=== PATIENT | male | born 1975 | race African-American/Black ===

== ENCOUNTER 2022-04-27 19:53 | Emergency (ER) | payer OTHER, MEDICAID, SELFPAY ==
--- NOTE | ~2022-04-27 | CT_ITS ---
EXAMINATION: CT abdomen pelvis wo con DATE: 04/27/2022 22:12 INDICATION: Right flank pain. Hematuria. TECHNIQUE: Computed tomography (CT) of the abdomen and pelvis was performed without intravenous contr ast. Automated exposure control and iterative reconstruction technique were employed. The dose-length product was 1645.75 mGy-cm. COMPARISON: None. FINDINGS: The visualized portions of the lung bases are clear without pneumonia or pleural effusion. The heart size is normal. No pericardial effusion. The liver, gallbladder, spleen, pancreas, adrenal glands, and kidneys are normal. There is no urolithiasis. The prostate is moderately enlarged. There are no dilated loops of bowel. The appendix is normal. There are no pathologically enlarged lymph nod es. There is no free intraperitoneal fluid. There are chronic bilateral L5 pars defects. There is mod erate lower lumbar spondylosis. IMPRESSION: 1. No urolithiasis. Reviewed, dictated and finalized at location A. IMPRESSION: 1. No urolithiasis.
[2022-04-27 20:06] VITALS: BP 202/128; PULSE 99; RESP 20; TEMP 36.7; O2SAT 100
--- NOTE | 2022-04-27 20:21 | PC.NURSE ---
Dr Pagan aware of elevated BP, no new orders at this time
[2022-04-27 20:24] LABS: Appearance Urine Clear (Clear); Bilirubin Urine Negative (Negative); Blood Urine 3+ (Negative); Color Urine Yellow (Yellow); Glucose Urine UA Negative (Negative); Ketones Urine Trace mg/dL (Negative); Leukocyte Esterase Ur 2+ LEU/UL (Negative); Nitrate Urine Negative (Negative); Protein Urine 2+ mg/dL (Negative); Specific Grav Ur >= 1.030 (1.001-1.035); pH Urine 5.5 (5.0-9.0)
[2022-04-27 20:32] LABS: Bacteria Urine Trace /hpf; Mucus Urine Rare /lpf; RBC Urine >75 /hpf (0-2); Squamous Epithelial Cell Urine Occasional /hpf (Few); WBC Urine >75 /hpf
[2022-04-27 20:33] LABS: Add Urine Microscopic? YES
--- NOTE | 2022-04-27 21:40 | ED.GENADULT ---
HPI - General Adult General Chief complaint: Urogenital-Male Stated complaint: blood in urine Time Seen by Provider: 04/27/22 21:31 History of Present Illness HPI narrative: Patient is a 46-year-old male here for evaluation of dysuria, hematuria, urgency and burning today. He denies any history of UTI. He is sexually active with one female partner for past decade; denies known exposure to STIs. He has some mild bilateral low back pain, R>L, but this is mild and patient states it feels similar to a musculoskeletal strain. No fevers, chills, nausea, vomiting. He has a history of high blood pressure and states that he has been out of his medicines for the past 3 days, he takes lisinopril, metoprolol and Norvasc. Related Data Allergies Allergy/AdvReac Type Severity Reaction Status Date / Time No Known Allergies Allergy Verified 04/27/22 20:10 Review of Systems Review of Systems: Gen: Denies fevers or chills Eyes: Denies eye pain or visual change ENT: Denies congestion Respiratory: Denies shortness of breath or cough CV: Denies chest pain or palpitations GI: Denies abdominal pain nausea, emesis or diarrhea : reports hematuria, burning. Musculoskeletal: Reports back pain. Neuro: Denies numbness, tingling, weakness or focal weakness Skin: Denies rash Except as documented, all other systems reviewed and negative Exam Narrative: APPEARANCE: Well appearing, no pain in distress, well-nourished. Head: Normocephalic and atraumatic. EYES: PERRLA/EOMI, conjunctivae clear NOSE: No nasal drainage EARS: External ear normal in appearance THROAT: Oropharynx is clear. Mucous membranes are moist. NECK: Supple. No adenopathy, no masses. RESPIRATORY: Airway patent, respirations nonlabored. Clear to auscultation bilaterally, no rales, rhonchi, wheezing. CARDIOVASCULAR: Regular rate and rhythm without murmurs, rubs, or gallops. ABDOMINAL: Normoactive bowel sounds. Soft, nontender, nondistended. No rebound tenderness or guarding. MUSCULOSKELETAL: no cva tenderness. Extremities are warm and well-perfused. Moves all extremities well. No edema. NEURO: Normal speech. No focal neurologic deficits. SKIN: Skin is warm and dry. No rashes. PSYCHIATRIC: Normal affect/mood. Course Vital Signs Vital signs: Vital Signs Temperature 98.0 F 04/27/22 20:06 Pulse Rate 99 04/27/22 20:06 Respiratory Rate 20 04/27/22 20:06 Blood Pressure 202/128 H 04/27/22 20:06 Pulse Oximetry 100 04/27/22 20:06 Oxygen Delivery Room Air 04/27/22 20:06 Temperature 98.3 F 04/27/22 23:42 Pulse Rate 82 04/27/22 23:42 Respiratory Rate 18 04/27/22 23:42 Blood Pressure 192/102 H 04/27/22 23:42 Pulse Oximetry 98 04/27/22 23:42 Oxygen Delivery Room Air 04/27/22 20:06 Medical Decision Making MDM Narrative Medical decision making narrative: 46-year-old male here for evaluation of urinary symptoms over the past day with evidence of UTI on UA with leukocytes, red blood cells and white blood cells. Postvoid residual is normal; patient not having sensation of retention. He is hypertensive but his vital signs are otherwise normal. Given presence of back pain, CT abdomen pelvis was obtained, which had no evidence of kidney stone or pyelo. Sent screening for GC and trichomoniasis, will treat prophylactically with ceftriaxone in the ED and send patient home with Cipro for UTI. Additionally, patient is requesting that his blood pressure medicine is refilled, which I feel is very reasonable given his elevated reads today. Will send prescriptions to pharmacy. He was given reasons to return to the ED and he voiced understanding. Vital Signs Vital Signs: Vital Signs Temperature 98.0 F 04/27/22 20:06 Pulse Rate 99 04/27/22 20:06 Respiratory Rate 20 04/27/22 20:06 Blood Pressure 202/128 H 04/27/22 20:06 Pulse Oximetry 100 04/27/22 20:06 Oxygen Delivery Room Air 04/27/22 20:06 Temperature 98.3 F 04/27/22 23:42 Pulse Ra
--- NOTE | 2022-04-27 21:45 | PC.NURSE ---
voided 100ml post residual scan 31mls noted
[2022-04-27 22:37] LABS: Basophils Percent Auto 0.3 % (0.2-1.2); Eosinophils Percent Auto 0.2 % (0-4.4); Hematocrit 42.2 % (42.0-52.0); Hemoglobin 13.3 g/dL (14.0-18.0); Immature Granulocyte Absolute 0.06 K/mm3 (0.00-0.031); Immature Granulocyte Percent A 0.7 % (0-0.5); Lymphocytes Absolute Auto 1.87 K/mm3 (0.9-3.2); Lymphocytes Percent Auto 21.5 % (18.3-44.2); Mean Corpuscular HGB Conc 31.5 g/dl (32-36); Mean Corpuscular Hemoglobin 27.4 pg (26-34); Mean Platelet Volume 9.7 fl (7.4-10.4); Monocytes Absolute Auto 0.8 K/mm3 (0.1-0.6); Monocytes Percent Auto 9.3 % (2.6-8.5); Neutrophils Absolute Auto 5.9 K/mm3 (1.3-6.7); Platelet Count Result 190 k/mm3 (150-375); Red Blood Count 4.85 M/mm3 (4.6-6.20); Red Cell Distribution Width 13.5 % (11.5-14.5); White Blood Count 8.7 K/mm3 (4.5-10.0)
[2022-04-27 22:51] LABS: Alanine Aminotransferase 26 U/L (6-50); Albumin Level 4.2 g/dL (3.5-5.1); Alkaline Phosphatase 102 U/L (38-126); Anion Gap 8 mmol/L (8-16); Aspartate Amino Transferase 27 U/L (17-59); Bilirubin,Total 0.4 mg/dL (0.2-1.3); Blood Urea Nitrogen 19 mg/dL (9-20); Calcium 8.7 mg/dL (8.4-10.2); Carbon Dioxide 29 mmol/L (22-30); Chloride 104 mmol/L (98-107); Estimated CRCL calculation 150 ml/min; Estimated Glomerular Filt Rate > 60; Glucose 92 mg/dL (65-110); INR 1.1; Potassium 3.7 mmol/L (3.4-5.0); Prothrombin Time 13.4 Seconds (11.1-14.7); Sodium 141 mmol/L (137-145)
[2022-04-27 22:54] VITALS: BP 109/107; PULSE 79; RESP 20; TEMP 36.8; O2SAT 100
[2022-04-27 23:11] VITALS: PULSE 88
[2022-04-27] MEDS: carvediloL 25 MG TABLET PO (23:11)
[2022-04-27] MEDS: amLODIPine BESYLATE 5 MG TABLET PO (23:11)
[2022-04-27] MEDS: lisinopriL 20 MG TABLET 40 MG PO (23:12)
[2022-04-27] MEDS: cefTRIAXone 1 GM VIAL IM (23:18)
[2022-04-27] MEDS: LIDOCAINE HCL 1% LOCAL INJ 20 ML VIAL (23:19)
[2022-04-27 23:42] VITALS: BP 192/102; PULSE 82; RESP 18; TEMP 36.8; O2SAT 98
== END 2022-04-27 23:44 | disposition home or self-care (01) ==
PROVIDERS: Emergency Medicine; Physician Assistant; Emergency Provider Emergency Medicine; PCP Internal Medicine
DX: N39.0 Urinary tract infection, site not specified (principal); I10 Essential (primary) hypertension
CPT/HCPCS: 36415; 74176; 80053; 81001; 85025; 85610; 87077; 87086; 87186; 87491; 87591; 87661; 96372; 99284; A9270; J0696

== ENCOUNTER 2022-07-24 16:25 | Emergency (ER) | payer OTHER, MEDICAID, SELFPAY ==
[2022-07-24 16:39] VITALS: BP 182/112; PULSE 86; RESP 20; TEMP 36.1; O2SAT 100
--- NOTE | 2022-07-24 16:55 | ED.LOWEXIN ---
HPI - Extremity Injury (Lower) General Chief Complaint: Extremity Injury, Lower Stated Complaint: swollen knee and pain Time Seen by Provider: 07/24/22 16:45 Source: patient Mode of arrival: ambulatory Limitations: no limitations History of Present Illness HPI Narrative: Patient presents today complaining of a 2 week history of left knee pain that started after a cortisone injection for osteoarthritis at his orthopedic doctor's office. He currently rates his pain 5/10 at rest, which increases to 10/10 with any weight-bearing. He has also been applying a topical cream without relief. Pain increases with movement and weight-bearing. Denies fever. States his orthopedist office can get him in in 2 days, but wanted him to come in for evaluation to make sure his knee was not septic. Denies fever. Related Data Home Medications Medication Instructions Recorded Confirmed atorvastatin 20 mg tablet 20 mg DAILY 07/24/22 07/24/22 furosemide 40 mg tablet 40 mg DAILY 07/24/22 07/24/22 hydrochlorothiazide 25 mg tablet 25 mg DAILY 07/24/22 07/24/22 ibuprofen 800 mg tablet 800 mg TID 07/24/22 07/24/22 Allergies Allergy/AdvReac Type Severity Reaction Status Date / Time No Known Allergies Allergy Verified 07/24/22 16:44 Review of Systems Review of Systems: CONSTITUTIONAL: Denies body aches, fever, chills, or sweats. EYES: Denies visual changes, redness, or discharge. ENT: Denies rhinorrhea, congestion, sore throat, or otalgia. CARDIOVASCULAR: Denies chest pain, palpitations, or edema. RESPIRATORY: Denies cough or dyspnea. GASTROINTESTINAL: Denies abdominal pain, nausea, vomiting, or diarrhea. GENITOURINARY: Denies dysuria or hematuria. SKIN: Denies rash, itching, or wounds. MUSCULOSKELETAL: Denies back pain, or myalgia.+ left knee pain NEUROLOGIC: Denies headache, numbness, tingling, or weakness. PSYCH: Denies depression or anxiety. [facility] Past Medical History Medical History (Updated 07/24/22 @ 17:00 by Yanet Patel, [employer], ) Hypertension Comments At time of signature, I have reviewed and agree with nursing past medical, surgical, social and family history unless otherwise noted. Please see nursing chart for further information. There is no relevant family history pertinent to the presenting complaint Exam Narrative: GENERAL: Well-appearing, well-nourished, and in no acute distress. HEAD: Normocephalic, atraumatic. EYES: EOMI. No redness or drainage. Conjunctivae normal. ENT: Mucous membranes pink and moist. NECK: Normal AROM. CHEST: No respiratory distress. EXTREMITIES: Left knee: Mild edema about the knee. Tenderness to the medial joint line. No redness or noted about the knee. Patient has full range of motion with increased pain. Distal sensation intact. Capillary refill normal. SKIN: Warm, dry, no rash. Capillary refill normal. Normal skin turgor. NEURO: No focal deficits. Alert and oriented x3. Gait steady. PSYCH: Normal affect. No signs of depression or anxiety. Course Course Level of Care: Express Care Visit Vital Signs Vital signs: Vital Signs Temperature 96.9 F L 07/24/22 16:39 Pulse Rate 86 07/24/22 16:39 Respiratory Rate 20 07/24/22 16:39 Blood Pressure 182/112 H 07/24/22 16:39 Pulse Oximetry 100 07/24/22 16:39 Oxygen Delivery Room Air 07/24/22 16:39 Temperature 96.9 F L 07/24/22 16:39 Pulse Rate 86 07/24/22 16:39 Respiratory Rate 20 07/24/22 16:39 Blood Pressure 182/112 H 07/24/22 16:39 Pulse Oximetry 100 07/24/22 16:39 Oxygen Delivery Room Air 07/24/22 16:39 Reviewed. Pt has been instructed to follow up with his PCP regarding his elevated blood pressure today. Patient is on 4 different blood pressure medications and states he does take them as prescribed. He has no symptoms of hypertensive urgency/emergency at this time. MDM - Extremity Injury (Lower) Differential Diagnosis Differential diagnosis: Likely other ( knee pain, osteoarthrit
== END 2022-07-24 17:06 | disposition home or self-care (01) ==
PROVIDERS: Emergency Provider Nurse Practitioner; PCP Internal Medicine
DX: M25.562 Pain in left knee (principal); I10 Essential (primary) hypertension
CPT/HCPCS: 99212; G0463

== ENCOUNTER 2023-05-03 11:39 | Emergency (ER) | payer OTHER, MEDICAID, SELFPAY ==
[2023-05-03] VITALS (7 sets, daily range): BP systolic 156–198; BP diastolic 100–129; PULSE 65–72; RESP 18–21; TEMP 37.1; O2SAT 97–100
--- NOTE | ~2023-05-03 | XR_ITS ---
XR chest 1V portable INDICATION: Chest pain and shortness of breath TECHNIQUE: 2 view chest. FINDINGS: No prior studies for comparison. There is left perihilar interstitial prominence and peribronchial cuffing. There is no focal consoli dation, pleural effusion, or pneumothorax. The cardiomediastinal silhouette is normal. IMPRESSION: 1. Findings most consistent with bronchiolitis versus an atypical or viral pneumonia. Reviewed, dictated and finalized at location B. IMPRESSION: 1. Findings most consistent with bronchiolitis versus an atypical or viral [facility].
--- NOTE | 2023-05-03 11:46 | ECG_ITS ---
Measurements Intervals [place] Rate: 75 P: 36 VT: 153 QRS: -5 QRSD: 98 T: 15 QT: 382 QTc: 428 Interpretive Statements SINUS RHYTHM WITH OCCASIONAL SUPRAVENTRICULAR PREMATURE COMPLEXES OTHERWISE WITHIN NORMAL LIMITS NO PREVIOUS ECG AVAILABLE FOR COMPARISON Electronically Signed On 05-03-2023 14:49:17 CDT by Oneal Solis M.D.
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
[2023-05-03] MEDS: ONDANSETRON HCL ODT 4 MG TABLET PO (15:01)
[2023-05-03] MEDS: HYDROmorphone HCL INJ (*CRX) 1 MG/ML SYR IM (15:01)
[2023-05-03 15:13] LABS: Basophils Percent Auto 0.5 % (0.2-1.2); Eosinophils Absolute Auto 0.1 K/mm3 (0-0.3); Eosinophils Percent Auto 1.5 % (0-4.4); Hematocrit 41.8 % (42.0-52.0); Hemoglobin 12.9 g/dL (14.0-18.0); Immature Granulocyte Percent A 1.5 % (0-0.5); Lymphocytes Absolute Auto 1.58 K/mm3 (0.9-3.2); Mean Corpuscular HGB Conc 30.9 g/dl (32-36); Mean Corpuscular Hemoglobin 27.4 pg (26-34); Mean Corpuscular Volume 88.7 fl (80-100); Monocytes Absolute Auto 0.6 K/mm3 (0.1-0.6); Monocytes Percent Auto 8.4 % (2.6-8.5); Neutrophils Absolute Auto 4.2 K/mm3 (1.3-6.7); Neutrophils Percent Auto 64.1 % (45.5-73.1); Platelet Count Result 260 k/mm3 (150-375); Red Blood Count 4.71 M/mm3 (4.6-6.20); Red Cell Distribution Width 13.4 % (11.5-14.5); White Blood Count 6.6 K/mm3 (4.5-10.0)
[2023-05-03 15:22] LABS: Alanine Aminotransferase 35 U/L (6-50); Albumin Level 4.4 g/dL (3.5-5.1); Alkaline Phosphatase 145 U/L (38-126); Anion Gap 7 mmol/L (8-16); Aspartate Amino Transferase 22 U/L (17-59); Bilirubin,Total 0.6 mg/dL (0.2-1.3); Blood Urea Nitrogen 16 mg/dL (9-20); Calcium 9.4 mg/dL (8.4-10.2); Carbon Dioxide 27 mmol/L (22-30); Chloride 105 mmol/L (98-107); Estimated CRCL calculation 252 ml/min; Estimated Glomerular Filt Rate > 60; Glucose 94 mg/dL (65-110); Potassium 4.1 mmol/L (3.4-5.0); Sodium 139 mmol/L (137-145)
[2023-05-03 15:34] LABS: Troponin I < 0.012 ng/mL (0.000-0.034)
[2023-05-03] MEDS: LABETALOL HCL INJ 100 MG/20 ML VIAL 20 MG IV PUSH ×2 (16:28→17:02)
[2023-05-03] MEDS: LORazepam INJ (*CRX) 2 MG/ML VIAL 1 MG IV PUSH (16:28)
--- NOTE | 2023-05-03 16:56 | PC.NURSE ---
Upon taking discharge vitals this RN noted pts BP 190s/130s. BP repeated mx times in mx extremities. Dr. Aguirre notified.
== END 2023-05-03 18:49 | disposition home or self-care (01) ==
PROVIDERS: Emergency Provider Emergency Medicine; PCP Internal Medicine; Visit Provider Internal Medicine
DX: S22.49XD Multiple fractures of ribs, unspecified side, subsequent encounter for fracture with routine healing (principal); I10 Essential (primary) hypertension; Z23 Encounter for immunization; V49.9XXD Car occupant (driver) (passenger) injured in unspecified traffic accident, subsequent encounter
CPT/HCPCS: 36415; 71045; 80053; 84484; 85025; 90471; 93005; 96374; 96375; 96376; 99284; A9270; J1170; J2060

== ENCOUNTER 2023-10-07 16:09 | Emergency (ER) | payer OTHER, SELFPAY ==
--- NOTE | 2023-10-07 16:18 | ED.EAR ---
HPI - Ear Problem General Chief complaint: Ear Stated complaint: lt ear pain Time Seen by Provider: 10/07/23 16:55 Source: patient and RN notes reviewed Mode of arrival: ambulatory Limitations: no limitations History of Present Illness HPI Narrative: 48-year-old male presents concern for left ear pain for 1 week. Reports symptoms started after using ear buds. He denies drainage from the ear. He denies upper respiratory symptoms. He denies fever. MD Complaint: ear pain Related Data Home Medications Medication Instructions Recorded Confirmed atorvastatin 20 mg tablet 20 mg DAILY 07/24/22 07/24/22 furosemide 40 mg tablet 40 mg DAILY 07/24/22 07/24/22 hydrochlorothiazide 25 mg tablet 25 mg DAILY 07/24/22 07/24/22 ibuprofen 800 mg tablet 800 mg TID 07/24/22 07/24/22 bupropion HCl 300 mg 24 hr tablet, mg PO 10/07/23 10/07/23 extended release losartan 100 mg tablet mg 10/07/23 metoprolol succinate 100 mg mg PO 10/07/23 tablet,extended release 24 hr Allergies Allergy/AdvReac Type Severity Reaction Status Date / Time No Known Allergies Allergy Verified 10/07/23 16:39 Review of Systems Review of Systems: CONSTITUTIONAL: Denies malaise, chills, sweats, or fever. EYES: Denies visual changes, redness, or discharge. ENT: Denies rhinorrhea, congestion, sinus pain, and sore throat. Reports left ear pain CARDIOVASCULAR: Denies chest pain, palpitations, or edema. RESPIRATORY: Denies cough. Denies dyspnea. GASTROINTESTINAL: Denies abdominal pain, nausea, vomiting, diarrhea SKIN: Denies rash or itching. MUSCULOSKELETAL: Denies myalgia. NEUROLOGIC: Denies headache. All systems reviewed & are unremarkable except as noted in HPI and below PMFSH Past Medical History Medical History Hypertension Comments At time of signature, agree with nursing past medical, surgical, social and family history. There is no relevant family history pertinent to the presenting complaint Exam Narrative: GENERAL: Well-appearing, well-nourished, and in no acute distress. HEAD: Normocephalic EYES: PERRLA, conjunctivae clear ENT: Nares clear, turbinates edematous, clear discharge. Mucous membranes moist. TM pearly wells with sharp light reflex bilaterally; left tragal tenderness with EAC erythema, edema. Oropharynx not erythematous without lesions. Tonsils not enlarged and without exudate, no drooling, no hoarseness, no trismus, uvula midline. NECK: Supple. No lymphadenopathy CHEST: Clear to auscultation, breath sounds equal. No wheezing, rhonchi, rales, or stridor. No respiratory distress, speaks in full sentences. HEART: Regular rate and rhythm. No murmur heard. SKIN: Warm, dry, no rash. NEURO: Alert and oriented x3. PSYCH: Normal mood and affect Course Course Emergency Course: Patient is aware of diagnosis, understands and agrees to treatment plan. Anticipatory guidance given. Patient agrees to follow-up as directed and is aware of reasons to seek care at the emergency department. Portions of this record may have been created with voice recognition software Level of Care: Express Care Visit Vital Signs Vital signs: Reviewed. Medical Decision Making MDM Narrative Medical decision making narrative: Differential diagnosis considered: Arshad virus, strep pharyngitis, allergic rhinitis, upper respiratory tract infection, sinusitis, rhinosinusitis, nasopharyngitis. viral pharyngitis, otitis media, otitis externa, otitis effusion, cerumen impaction, foreign body. Exam findings show no acute concerns or changes; patient is non-toxic appearing and is in no distress. Patient is appropriate for outpatient treatment and follow-up. Critical Care Time Critical Care Time Critical Care Time: No Discharge Plan Discharge Clinical Impression: Otitis externa Patient Disposition: Home, Self-Care Condition: Stable Instructions: How to Use Ear Drops (ED) Additional Instructio
[2023-10-07 16:31] VITALS: BP 169/113; PULSE 74; RESP 16; TEMP 36.9; O2SAT 100
== END 2023-10-07 17:11 | disposition home or self-care (01) ==
PROVIDERS: Emergency Provider Nurse Practitioner; PCP Internal Medicine
DX: H60.92 Unspecified otitis externa, left ear (principal); I10 Essential (primary) hypertension
CPT/HCPCS: 99213; G0463

== ENCOUNTER 2023-12-20 07:26 | Emergency (ER) | payer OTHER, SELFPAY ==
--- NOTE | ~2023-12-20 | XR_ITS ---
EXAMINATION: XR chest 2V DATE: 12/20/2023 08:37 INDICATION: Midline chest pain. TECHNIQUE: Frontal and lateral views of the chest were obtained. COMPARISON: Chest view 05/03/2023 FINDINGS: There is no pneumonia, pleural effusion, or pneumothorax. The heart size is normal. IMPRESSION: 1. No acute cardiopulmonary disease. Reviewed, dictated and finalized at location A.
--- NOTE | 2023-12-20 07:31 | ECG_ITS ---
SEE SCANNED COPY FOR CONFIRMED REPORT MTDD
[2023-12-20 07:32] VITALS: BP 166/111; PULSE 73; RESP 20; TEMP 36.8; O2SAT 100
[2023-12-20 07:36] VITALS: PULSE 73; RESP 26; O2SAT 100
[2023-12-20 07:37] VITALS: BP 166/111; PULSE 70; RESP 18; TEMP 36.6; O2SAT 100
[2023-12-20 07:50] LABS: Basophils Percent Auto 0.6 % (0.2-1.2); Eosinophils Absolute Auto 0.1 K/mm3 (0-0.3); Eosinophils Percent Auto 2.4 % (0-4.4); Hematocrit 46.4 % (42.0-52.0); Hemoglobin 14.2 g/dL (14.0-18.0); Immature Granulocyte Absolute 0.04 K/mm3 (0.00-0.031); Immature Granulocyte Percent A 0.7 % (0-0.5); Mean Corpuscular HGB Conc 30.6 g/dl (32-36); Mean Corpuscular Hemoglobin 26.7 pg (26-34); Mean Corpuscular Volume 87.2 fl (80-100); Mean Platelet Volume 9.7 fl (7.4-10.4); Monocytes Absolute Auto 0.5 K/mm3 (0.1-0.6); Monocytes Percent Auto 9.1 % (2.6-8.5); Neutrophils Absolute Auto 2.7 K/mm3 (1.3-6.7); Neutrophils Percent Auto 50.2 % (45.5-73.1); Platelet Count Result 221 k/mm3 (150-375); Red Blood Count 5.32 M/mm3 (4.6-6.20); Red Cell Distribution Width 13.5 % (11.5-14.5); White Blood Count 5.4 K/mm3 (4.5-10.0)
[2023-12-20 08:04] LABS: Alanine Aminotransferase 32 U/L (6-50); Albumin Level 4.2 g/dL (3.5-5.1); Alkaline Phosphatase 107 U/L (38-126); Anion Gap 4 mmol/L (4-12); Aspartate Amino Transferase 30 U/L (17-59); Bilirubin,Total 0.7 mg/dL (0.2-1.3); Blood Urea Nitrogen 20 mg/dL (9-20); Carbon Dioxide 28 mmol/L (22-30); Chloride 108 mmol/L (98-107); Estimated CRCL calculation 147 ml/min; Estimated Glomerular Filt Rate > 60; Glucose 103 mg/dL (65-110); Lipase 94 U/L (23-300); Potassium 3.6 mmol/L (3.4-5.0); Sodium 140 mmol/L (137-145)
[2023-12-20 08:15] LABS: Troponin I < 0.012 ng/mL (0.000-0.034)
[2023-12-20 08:16] LABS: Prothrombin Time 13.5 Seconds (11.1-14.7)
[2023-12-20 08:17] LABS: Partial Thromboplastin Time 25.5 Seconds (22.3-36.8)
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
[2023-12-20 08:30] VITALS: BP 148/108; PULSE 72; RESP 18; TEMP 36.7; O2SAT 100
[2023-12-20 09:30] VITALS: BP 152/99; PULSE 74; RESP 18; TEMP 36.6; O2SAT 100
[2023-12-20] MEDS: KETOROLAC 30 MG/ML VIAL (*BKC) IV PUSH (09:40)
[2023-12-20 10:24] VITALS: BP 144/110; PULSE 72; RESP 20; TEMP 36.6; O2SAT 100
== END 2023-12-20 10:33 | disposition home or self-care (01) ==
PROVIDERS: Emergency Provider Emergency Medicine; PCP Internal Medicine
DX: R07.89 Other chest pain (principal); I10 Essential (primary) hypertension
CPT/HCPCS: 36415; 71046; 80053; 83690; 84484; 85025; 85610; 85730; 93005; 96374; 99284; J1885

== ENCOUNTER 2024-01-06 17:22 | Emergency (ER) | payer OTHER, SELFPAY ==
[2024-01-06 17:38] VITALS: BP 161/98; PULSE 86; RESP 16; TEMP 36.7; O2SAT 97
--- NOTE | 2024-01-06 17:50 | ED.SKABFB ---
HPI - Skin/Abscess/Foreign Bdy General Chief complaint: Skin/Abscess/Foreign Body Stated complaint: Swollen top lip Time Seen by Provider: 01/06/24 17:50 Source: patient and RN notes reviewed Mode of arrival: ambulatory Limitations: dementia History of Present Illness HPI narrative: 48-year-old male presents concern for hair follicle infection on his upper lip. Reports 3 spots of light swelling, tenderness that he noticed several days ago. He denies fever, aches, chills, sweats. He reports he occasionally gets similar hair follicle infections in his. He denies swollen tongue, trouble breathing, rash, swollen lower lip MD complaint: other (Redness) Related Data Home Medications Medication Instructions Recorded Confirmed atorvastatin 20 mg tablet 20 mg DAILY 07/24/22 01/06/24 furosemide 40 mg tablet 40 mg DAILY 07/24/22 01/06/24 hydrochlorothiazide 25 mg tablet 25 mg DAILY 07/24/22 01/06/24 bupropion HCl 300 mg 24 hr tablet, 300 mg PO DAILY 10/07/23 01/06/24 extended release losartan 100 mg tablet 100 mg PO DAILY 10/07/23 01/06/24 liraglutide 0.6 mg/0.1 mL (18 mg/3 0.6 mg subcut DAILY 01/06/24 01/06/24 mL) subcutaneous pen injector (Ensatoza 2-Maverick) metoprolol succinate 50 mg 50 mg PO DAILY 01/06/24 01/06/24 tablet,extended release 24 hr Allergies Allergy/AdvReac Type Severity Reaction Status Date / Time No Known Allergies Allergy Verified 01/06/24 17:30 Review of Systems Review of Systems: CONSTITUTIONAL: Denies malaise, chills, sweats, or fever. EYES: Denies redness, or discharge. ENT: Denies rhinorrhea, congestion, swollen lips, swollen tongue CARDIOVASCULAR: Denies chest pain, palpitations, or edema. RESPIRATORY: Denies cough or dyspnea. GASTROINTESTINAL: Denies abdominal pain, nausea, vomiting SKIN: Reports redness, swelling, tenderness to the upper lip. Denies purulent drainage, vesicles, bullae, numbness, pain beyond proportion MUSCULOSKELETAL: Denies joint pain or myalgia. NEUROLOGIC: Denies headache. All systems reviewed & are unremarkable except as noted in HPI and below PMFSH Past Medical History Medical History Hypertension Comments At time of signature, agree with nursing past medical, surgical, social and family history. There is no relevant family history pertinent to the presenting complaint Exam Narrative: GENERAL: Well-appearing, well-nourished, and in no acute distress. HEAD: Normocephalic, atraumatic. EYES: PERRLA, conjunctivae clear ENT: Mucous membranes moist. NECK: Supple. No lymphadenopathy CHEST: Clear to auscultation. No respiratory distress. HEART: Regular rate and rhythm. SKIN: Warm, dry. Three edematous, erythematous, tender hair follicles noted above the lip. No vesicles, bullae, necrosis, ecchymosis, crepitus noted. NEURO: Alert and oriented x3. PSYCH: Normal mood and affect Course Course Emergency Course: Patient is aware of diagnosis, understands and agrees to treatment plan. Anticipatory guidance given. Patient agrees to follow-up as directed and is aware of reasons to seek care at the emergency department. Portions of this record may have been created with voice recognition software Level of Care: Express Care Visit Vital Signs Vital signs: Vital Signs Temperature 98.1 F 01/06/24 17:38 Pulse Rate 86 01/06/24 17:38 Respiratory Rate 16 01/06/24 17:38 Blood Pressure 161/98 H 01/06/24 17:38 Pulse Oximetry 97 01/06/24 17:38 Oxygen Delivery Room Air 01/06/24 17:38 Temperature 98.1 F 01/06/24 17:38 Pulse Rate 86 01/06/24 17:38 Respiratory Rate 16 01/06/24 17:38 Blood Pressure 161/98 H 01/06/24 17:38 Pulse Oximetry 97 01/06/24 17:38 Oxygen Delivery Room Air 01/06/24 17:38 Reviewed. MDM - Skin/Abscess/Foreign Bdy MDM Narrative Medical decision making narrative: I evaluated this in the express care. History is obtained from patient who is an in
== END 2024-01-06 18:04 | disposition home or self-care (01) ==
PROVIDERS: Emergency Provider Nurse Practitioner; PCP Internal Medicine Infectious Disease
DX: L73.9 Follicular disorder, unspecified (principal); I10 Essential (primary) hypertension
CPT/HCPCS: 99213; G0463

== ENCOUNTER 2024-06-19 10:41 | Emergency (ER) | payer OTHER, SELFPAY ==
--- NOTE | ~2024-06-19 | XR_ITS ---
CHEST RADIOGRAPH, PA AND LATERAL CLINICAL HISTORY: productive cough,never smoker . COMPARISON: 12/20/2023 TECHNIQUE: PA and lateral views of the chest. FINDINGS The cardiomediastinal silhouette is unremarkable. The lungs are clear. Visualized osseous structures and soft tissues are unremarkable. IMPRESSION: No focal infiltrate or effusion. If clinical suspicion persists, cross-sectional imaging (noncontrast enhanced CT examination of the c hest) is suggested for further evaluation. Reviewed, dictated and finalized at location A. IMPRESSION: No focal infiltrate or effusion. If clinical suspicion persists, cross-sectional imaging (noncontrast enhanced C T examination of the chest) is suggested for further evaluation.
[2024-06-19 10:53] VITALS: BP 181/108; PULSE 81; RESP 18; TEMP 36.9; O2SAT 100
--- NOTE | 2024-06-19 11:07 | ED.URI ---
HPI - URI/Sore Throat General Chief Complaint: Upper Respiratory Infection Stated Complaint: sore throat / cough Time Seen by Provider: 06/19/24 11:07 Source: patient, RN notes reviewed and old records reviewed Mode of arrival: ambulatory Limitations: no limitations History of Present Illness HPI Narrative: patient presents with complaints of headache, body aches, productive cough, chills, sweats. Symptoms have been present for 4 days. Elevated blood pressure noted on arrival. Patient admits that he has not been taking medication properly, took his medication today as he was walking in the door. He denies any shortness of breath, dizziness, chest pain. He has not been taking any [id number] medications for his symptoms Related Data Home Medications Medication Instructions Recorded Confirmed atorvastatin 20 mg tablet 20 mg DAILY 07/24/22 06/19/24 furosemide 40 mg tablet 40 mg DAILY 07/24/22 06/19/24 hydrochlorothiazide 25 mg tablet 25 mg DAILY 07/24/22 06/19/24 bupropion HCl 300 mg 24 hr tablet, 300 mg PO DAILY 10/07/23 06/19/24 extended release losartan 100 mg tablet 100 mg PO DAILY 10/07/23 06/19/24 metoprolol succinate 50 mg 50 mg PO DAILY 01/06/24 06/19/24 tablet,extended release 24 hr Allergies Allergy/AdvReac Type Severity Reaction Status Date / Time No Known Allergies Allergy Verified 06/19/24 11:08 Review of Systems Review of Systems: All systems reviewed & are unremarkable except as noted in HPI and below Constitutional: Constitutional: Reports as per HPI, Reports no additional constitutional complaints, Reports chills, Reports excessive sweating, Reports fatigue, Reports headache(s) and Reports lethargy ENT: Reports system reviewed and no additional complaints, except as documented Cardiovascular: Cardiovascular: Reports no additional cardiovascular complaints Respiratory: Respiratory: Reports no additional respiratory complaints, Reports chest congestion and Reports cough Gastrointestinal: Gastrointestinal: Reports no additional gastrointestinal complaints PMFSH Past Medical History Medical History Hypertension Comments At the time of my signature, I reviewed and agree with the nursing past medical, surgical, social, and family history. There is no relevant family history pertinent to the patient complaint. Exam Const: General: cooperative, no acute distress, alert and awake Orientation/consciousness: oriented to person, oriented to place and oriented to time HENMT: Head: normal to inspection Mouth: Yes moist mucous membranes Throat: posterior oropharynx normal Resp: Effort & Inspection: normal respiratory effort and able to speak in complete sentences Auscultation: clear to auscultation bilaterally, no crackles, no rales, rhonchi lower bilaterally and no wheezes Cardio: Palpation: normal PMI Rate: regular rate Rhythm: regular rhythm Heart sounds: S1 normal heart sound present and S2 normal heart sound present Neuro: General: oriented to person, oriented to place and oriented to time Cranial nerves: Yes CN's II-XII intact bilaterally Psych: Appearance: grossly normal Thought process: Normal thought process present Insight: Good insight present (Psych) Judgement: Good judgement present (Psych) Course Course Level of Care: Express Care Visit Vital Signs Vital signs: Vital Signs Temperature 98.4 F 06/19/24 10:53 Pulse Rate 81 06/19/24 10:53 Respiratory Rate 18 06/19/24 10:53 Blood Pressure 181/108 H 06/19/24 10:53 Pulse Oximetry 100 06/19/24 10:53 Oxygen Delivery Room Air 06/19/24 10:53 Temperature 98.4 F 06/19/24 10:53 Pulse Rate 81 06/19/24 10:53 Respiratory Rate 18 06/19/24 10:53 Blood Pressure 181/108 H 06/19/24 10:53 Pulse Oximetry 100 06/19/24 10:53 Oxygen Delivery Room Air 06/19/24 10:53 Reviewed MDM - URI/Sore Throat MDM Narrative Medical decision making narr
[2024-06-19 11:58] VITALS: BP 170/92; PULSE 84
== END 2024-06-19 11:58 | disposition home or self-care (01) ==
PROVIDERS: Emergency Provider Nurse Practitioner Family; PCP Internal Medicine Infectious Disease
DX: J18.1 Lobar pneumonia, unspecified organism (principal); I10 Essential (primary) hypertension
CPT/HCPCS: 71046; 99213; G0463